=== PATIENT | female | born 1995 | race Caucasian/White ===

== ENCOUNTER 2017-09-30 06:25 | Emergency (ER) | payer OTHER ==
[2017-09-30] MEDS ORDERED: IBUPROFEN 800 MG TABLET PO ONE (07:15)
--- NOTE | 2017-09-30 07:15 | ER Document Report ---
HPI - HPI Patient complains to provider of: ankle injury Pain Level: 4 Context: Patient is a 21 year old female who presents to the ED complaining of left ankle injury. States she was walking in her yard in the dark, stepped in a small whole and rolled her ankle. She admits to pain on the anteriolateral aspect of her ankle without swelling and pain worse with movement and weight bearing. Denies taking any PO pain meds BIOMED TECH. Otherwise healthy. LMP sep 08 - CONSTITUTIONAL Constitutional: DENIES: Fever, Chills - EENT EENT: DENIES: Sore Throat, Ear Pain, Eye problems - NEURO Neurology: DENIES: Headache, Weakness, Vision blurred, Dizzinesss / Vertigo - CARDIOVASCULAR Cardiovascular: DENIES: Chest pain - RESPIRATORY Respiratory: DENIES: Trouble Breathing, Coughing - GASTROINTESTINAL Gastrointestinal: DENIES: Abdominal Pain, Black / Bloody Stools - URINARY Urinary: DENIES: Dysuria, Urgency, Frequency - REPRODUCTIVE LMP: 09-08-17 - MUSCULOSKELETAL Musculoskeletal: REPORTS: Extremity pain - left ankle d/t fall Past Medical History - Social History Smoking Status: Current Every Day Smoker Chew tobacco use (# tins/day): No Frequency of alcohol use: None Drug Abuse: None Family History: Reviewed & Not Pertinent Patient has suicidal ideation: No Patient has homicidal ideation: No Renal/ Medical History: Denies: Hx Peritoneal Dialysis Vertical Provider Document - CONSTITUTIONAL Agree With Documented VS: Yes Notes: PHYSICAL EXAM GENERAL: Alert, interacts well. HEAD: Normocephalic, atraumatic. EXTREMITIES: Moves all extremities spontaneously with guarding of the LLE 2/2 pain. No evidence of edema, ecchymosis, deformity. ROM intact, cap refill less than 2 seconds in LE digits. Toes nontender. Knee nontender full ROM. Dorsalis pedis pulses 2/4 bilaterally. No cyanosis. NEUROLOGICAL: Alert and oriented x4. Normal speech. PSYCH: Normal affect, normal mood. SKIN: Warm, dry, normal turgor. No rashes or lesions noted. - INFECTION CONTROL TRAVEL OUTSIDE OF THE [place] IN LAST 30 DAYS: No - RESPIRATORY O2 Sat by Pulse Oximetry: 100 Course - Re-evaluation Re-evalutation: 09/30/17 08:01 Patient is a 21-year-old female is hemodynamically stable, no acute distress and afebrile. No evidence of a septic joint, gout flare, dislocation, or fracture on exam and imaging. Vitals wnl. At this time, I do not see an indication for labs or further imaging. Will discharge with conservative measures, return precautions, and follow-up recommendations. - Vital Signs Vital signs: Temp Pulse Resp BP Pulse Ox 98.5 F 120 H 18 124/88 H 100 09/30/17 06:33 09/30/17 06:33 09/30/17 06:33 09/30/17 06:33 09/30/17 06:33 - Diagnostic Test Radiology reviewed: Image reviewed, Reports reviewed Procedures - Immobilization Left Ankle Pre-Proc Neuro Vasc Exam: Normal Immobilizer type: Mohsen wrap, Crutches Performed by: PCT Post-Proc Neuro Vasc Exam: Unchanged from pre-exam Discharge - Discharge Clinical Impression: Ankle pain Qualifiers: Chronicity: acute Laterality: left Qualified Code(s): M25.572 - Pain in left ankle and joints of left foot Condition: Good Disposition: HOME, SELF-CARE Additional Instructions: You do not have evidence of a fracture on today's xrays. Your pain is likely to do soft tissue swelling and inflammation. This can last up to 6 weeks before completely resolving. You should continue to apply ice to the area regularly, keep the affected area elevated, and take ibuprofen 600mg every 6 hours as needed for pain. Please return if you have worsening pain, weakness, numbness, notice increasing redness or swelling to the area, develop a fever, or have any other symptoms that are concerning to you. Referrals: RADHA SAHNI MD [ACTIVE STAFF] - Follow up as needed
--- NOTE | 2017-09-30 07:36 | RADIOLOGY REPORT (SQ) ---
EXAM DESCRIPTION: ANKLE LEFT COMPLETE CLINICAL HISTORY: fall, pain COMPARISON: None. FINDINGS: 3 views of the left ankle. No acute fracture or dislocation. Normal osseous mineralization. Tibial plafond and talar dome are in appropriate alignment. Base of the fifth metatarsal is intact. IMPRESSION: No acute fracture or dislocation.
[2017-09-30 10:00] VITALS: BP 120/71
== END 2017-09-30 08:55 | disposition home or self-care (01) ==
LOC: ER 06:25
DX: M25.572 Pain in left ankle and joints of left foot (principal); X50.1XXA Overexertion from prolonged static or awkward postures, initial encounter; F17.200 Nicotine dependence, unspecified, uncomplicated
CPT/HCPCS: 99283

== ENCOUNTER 2017-11-26 19:03 | Emergency (ER) | payer OTHER ==
--- NOTE | 2017-11-26 20:13 | ER Document Report ---
ED Medical Screen (RME) - General Chief Complaint: Suicidal Ideation Stated Complaint: SUICIDAL IDEATION Time Seen by Provider: 11/26/17 20:11 Mode of Arrival: Ambulatory Information source: Patient Notes: Patient presents complaining of suicidal ideation. Patient states she has been hospitalized for this issue in the past. Patient states she has had previous attempts by cutting herself and taking pills on 2 separate occasions. Patient is currently 12 weeks . Patient denies any significant medical history although when asked patient does acknowledge that she has been to therapy for what she suspects is depression. I have greeted and performed a rapid initial assessment of this patient. A comprehensive ED assessment and evaluation of the patient, analysis of test results and completion of the medical decision making process will be conducted by additional ED providers. TRAVEL OUTSIDE OF THE [place] IN LAST 30 DAYS: No - Related Data Allergies/Adverse Reactions: Penicillins Allergy (Verified 11/26/17 19:04) Past Medical History Renal/ Medical History: Denies: Hx Peritoneal Dialysis Physical Exam - Vital signs Vitals: Temp Pulse Resp BP Pulse Ox 99.1 F 126 H 16 133/80 H 99 11/26/17 19:07 11/26/17 19:07 11/26/17 19:07 11/26/17 19:07 11/26/17 19:07 - Cardiovascular Rhythm: Regular. No: Tachycardia Heart sounds: S1 appreciated, S2 appreciated - Psychological Associated symptoms: Normal affect, Normal mood. No: Uncooperative Course - Vital Signs Vital signs: Temp Pulse Resp BP Pulse Ox 99.1 F 126 H 16 133/80 H 99 11/26/17 19:07 11/26/17 19:07 11/26/17 19:07 11/26/17 19:07 11/26/17 19:07
[2017-11-26 21:03] LABS: ABSOLUTE EOSINOPHILS # (AUTO) 0.3 10^3/uL (0.0-0.6); ABSOLUTE MONOCYTES (AUTO) 0.6 10^3/uL (0.1-1.4); ABSOLUTE NEUT (AUTO) 7.9 10^3/uL (1.7-8.2); BASOPHILS % (AUTO) 0.4 % (0-2); HEMATOCRIT 38.5 % (36.0-47.0); HEMOGLOBIN 13.3 g/dL (12.0-15.5); LYMPHOCYTES % (AUTO) 18.7 % (13-45); MEAN CORPUSCULAR HEMOGLOBIN 29.3 pg (27.0-33.4); MEAN CORPUSCULAR HGB CONC 34.5 g/dL (32.0-36.0); MEAN CORPUSCULAR VOLUME 85 fl (80-97); MONOCYTES % (AUTO) 5.3 % (3-13); PLATELET COUNT 277 10^3/uL (150-450); RED BLOOD COUNT 4.54 10^6/uL (3.72-5.28); RED CELL DISTRIBUTION WIDTH 14.5 % (11.5-14.0); SEGMENTED NEUTROPHILS % (AUTO) 72.6 % (42-78); TOTAL CELLS COUNTED % (AUTO) 100 %; WHITE BLOOD COUNT 10.9 10^3/uL (4.0-10.5)
[2017-11-26 21:09] LABS: APPEARANCE,URINE SLIGHTLY-CLOUDY; BILIRUBIN,URINE NEGATIVE (NEGATIVE); COLOR,URINE YELLOW; GLUCOSE, URINE NEGATIVE (NEGATIVE); KETONES,URINE 20 mg/dL (NEGATIVE); LEUKOCYTE ESTERASE,URINE NEGATIVE (NEGATIVE); NITRITE,URINE NEGATIVE (NEGATIVE); PROTEIN,URINE NEGATIVE (NEGATIVE); URINE SPECIFIC GRAVITY 1.024
[2017-11-26 21:22] LABS: URINE AMPHETAMINES SCREEN NEGATIVE; URINE BARBITURATES SCREEN NEGATIVE; URINE BENZODIAZEPINES SCREEN NEGATIVE; URINE COCAINE SCREEN NEGATIVE; URINE MARIJUANA (THC) SCREEN NEGATIVE; URINE METHADONE SCREEN NEGATIVE; URINE PHENCYCLIDINE SCREEN NEGATIVE
[2017-11-26 21:25] LABS: ALANINE AMINOTRANSFERASE 30 U/L (9-52); ALBUMIN 4.3 g/dL (3.5-5.0); ALKALINE PHOSPHATASE 61 U/L (38-126); ANION GAP 11 (5-19); ASPARTATE AMINO TRANSFERASE 23 U/L (14-36); BILIRUBIN,DIRECT 0.4 mg/dL (0.0-0.4); BILIRUBIN,TOTAL 0.4 mg/dL (0.2-1.3); BLOOD UREA NITROGEN 7 mg/dL (7-20); CALCIUM 9.5 mg/dL (8.4-10.2); CARBON DIOXIDE 26 mmol/L (22-30); CHLORIDE 103 mmol/L (98-107); GLUCOSE 76 mg/dL (75-110); POTASSIUM 3.7 mmol/L (3.6-5.0); SODIUM 139.8 mmol/L (137-145)
[2017-11-26 21:27] LABS: ACETAMINOPHEN < 10 ug/mL (10-30); ALCOHOL < 10 mg/dL (NONE DETECTED); SALICYLATE < 1.0 mg/dL (2.0-20.0)
--- NOTE | 2017-11-26 22:33 | ER Document Report ---
ED General - General Chief Complaint: Suicidal Ideation Stated Complaint: SUICIDAL IDEATION Time Seen by Provider: 11/26/17 20:11 Mode of Arrival: Ambulatory Notes: Patient is a 22-year-old female without past medical history, no prior mental health diagnoses, who presents with passive suicidal ideation and depression. Patient states that the symptoms have been going on "my entire life" but that she was having increasing suicidal thoughts over the past several days which prompted her to come to the emergency department. She states that she had been googling ways to harm herself but did not making any attempts or plans towards harming herself. She has never been evaluated by a psychiatrist, no prior mental health hospitalizations, and has never been on any psychiatric medications. She denies any acute medical concerns. She is unable to identify anything that would have triggered or worsened her current depression or increase or suicidal thoughts. TRAVEL OUTSIDE OF THE [place] IN LAST 30 DAYS: No - Related Data Allergies/Adverse Reactions: Penicillins Allergy (Verified 11/26/17 19:04) Past Medical History - General Information source: Patient - Social History Smoking Status: Current Every Day Smoker Chew tobacco use (# tins/day): No Frequency of alcohol use: None Drug Abuse: None Lives with: Spouse/Significant other Family History: Reviewed & Not Pertinent Patient has suicidal ideation: Yes Patient has homicidal ideation: No Renal/ Medical History: Denies: Hx Peritoneal Dialysis Review of Systems - Review of Systems Notes: Constitutional: Negative for fever. HENT: Negative for sore throat. Eyes: Negative for visual changes. Cardiovascular: Negative for chest pain. Respiratory: Negative for shortness of breath. Gastrointestinal: Negative for abdominal pain, vomiting or diarrhea. Genitourinary: Negative for dysuria. Musculoskeletal: Negative for back pain. Skin: Negative for rash. Neurological: Negative for headaches, weakness or numbness. 10 point ROS negative except as marked above and in HPI. Physical Exam - Vital signs Vitals: Temp Pulse Resp BP Pulse Ox 99.1 F 126 H 16 133/80 H 99 11/26/17 19:07 11/26/17 19:07 11/26/17 19:07 11/26/17 19:07 11/26/17 19:07 Interpretation: Tachycardic Notes: PHYSICAL EXAMINATION: GENERAL: Well-appearing, well-nourished and in no acute distress. HEAD: Atraumatic, normocephalic. EYES: Pupils equal round and reactive to light, extraocular movements intact, sclera anicteric, conjunctiva are normal. ENT: nares patent, oropharynx clear without exudates. Moist mucous membranes. NECK: Normal range of motion, supple without lymphadenopathy LUNGS: Breath sounds clear to auscultation bilaterally and equal. No wheezes rales or rhonchi. HEART: Regular rate and rhythm without murmurs ABDOMEN: Soft, nontender, normoactive bowel sounds. No guarding, no rebound. No masses appreciated. EXTREMITIES: Normal range of motion, no pitting or edema. No cyanosis. NEUROLOGICAL: No focal neurological deficits. Moves all extremities spontaneously and on command. PSYCH: Moderately anxious, depressed affect and mood SKIN: Warm, Dry, normal turgor, no rashes or lesions noted. Course - Re-evaluation Re-evalutation: 11/26/17 22:32 Patient presents with chronic passive suicidal ideation and depression that she reports has been present "all of my life". She denies any specific plans, means or intention to complete suicide this evening. Nothing is new or different today that prompted a visit to the emergency department other than patient decided that she would "like to be better and live a normal life". She is scheduled to have an outpatient follow-up appointment tomorrow with a family counseling service but would also like to remain in the emergency department to do speak to her psychiatry services in the morning. She will remain on a voluntary basis that she does not meet involuntary commitment criteria. Patient is 12 weeks and is already aware of this diagnosis. The remainder of her medical screening exam and laboratories are otherwise unremarkable. She is cleared for psychiatric evaluation and disposition - Vital Signs Vital signs: Temp Pulse Resp BP Pulse Ox 99.1 F 100 16 133/80 H 99 11/26/17 19:07 11/26/17 20:12 11/26/17 19:07 11/26/17 19:07 11/26/17 19:07 - Laboratory Result Diagrams: 11/26/17 20:45 11/26/17 20:45 Laboratory results interpreted by me: 11/26/17 11/26/17 11/26/17 20:45 20:45 20:45 WBC 10.9 H RDW 14.5 H Creatinine 0.48 L Serum HCG, Qual POSITIVE H Urine Ketones Urine Urobilinogen Salicylates < 1.0 L Acetaminophen < 10 L 11/26/17 20:45 WBC RDW Creatinine Serum HCG, Qual Urine Ketones 20 H Urine Urobilinogen 2.0 H Salicylates Acetaminophen - EKG Interpretation by Me Additional EKG results interpreted by me: 11/27/17 02:33 Normal sinus rhythm. Rate 87. No ST elevations or depressions. QTC is 429. Discharge - Discharge Clinical Impression: Passive suicidal ideations Depression Qualifiers: Depression Type: unspecified Qualified Code(s): F32.9 - Major depressive disorder, single episode, unspecified Condition: Good Disposition: PSYCH HOSP/UNIT
--- NOTE | 2017-11-27 08:02 | EKG REPORT ---
SEVERITY:- NORMAL ECG - SINUS RHYTHM : Confirmed by: Manohar Caal MD 27-Nov-2017 08:01:45
[2017-11-27 08:27] VITALS: BP 110/50
--- NOTE | 2017-11-27 10:01 | ER Document Report ---
Doctor's Note Notes: 11/27/17 10:00 Rounds: Chart reviewed and patient sleeping and I did not awaken her. Patient is . Has depression and suicidal ideation. Vital signs are all essentially normal. Lab studies were also essentially normal. Patient appears to be medically stable for transfer or discharge. Lizy Houser MD
--- NOTE | 2017-11-27 19:17 | PSYCHOLOGICAL NOTE ---
Psych Note - Psych Note Psych Note: Met with Patient who advised she has 4 children (7,2,2,1) and is currently 12 weeks . She stated she feels very depressed, has difficulty getting out of bed, and caring for her children. She reports she sometimes feels as though she wants to throw her children across the room, though this is frustration with the depression. She reported she cries all the time, is upset, and wants to have no responsibility in life. She denied any physical altercation between she and her children or . Patient reported a lengthy of history of depression since her teenage years. She reported an inpatient psychiatric stay at age 15 for cutting behaviors in [place], [place] for 3-4 days, and reported the cutting behaviors ceased. She denied previous suicide attempts until approximately 5 months ago when she reportedly took a bottle of antibiotics with intent to overdose, but her made her go to the bathroom and vomit, and did not have her seek medical attention. Patient reported she became at age 14 with her oldest child and the father of that child is reportedly now secondary to a car crash. The father of her twins reportedly by suicide in the driveway of their home and she was the one who found him, per her report. She described the moment of finding him as sad and scary, but also as exciting at the thought of and dying. Patient continued to ask if she was " bipolar" and if she could be provided information on bipolar disorder. Patient reported a family history of depression, bipolar, schizophrenia, alcoholism, drug abuse, etc. She indicated she has been on her own since age 14 and denied any sexual trauma. She reported she has been for 2 years to her Kyle who is an Pharmaceutical Operator in the [employer]. She stated she has an 11th grade education and does not work. She reported she generally stays home all day with the children which is challenging. Patient was alert and oriented to person, place, time, and circumstance. Mood was euthymic and affect was mood congruent, though it should be noted patient often laughed at inappropriate times such as discussing her ex's suicide, getting at age 14, her mother abandoning her, etc. She denied suicidal / homicidal ideation, intent or plan. She denied auditory/visual hallucination and no delusions were noted. Thought processes were linear, rational, and organized. Conversational speech was within normal limits for rate, tone, and prosody.Intellectual abilities were estimated within average range. Attention and concentration were within normal limits. Insight, judgment, and impulse control were considered fair. No Medication recommendations secondary to . Diagnoses: 1. 296.89 (F31.81) Bipolar II Disorder Impression / Plan: Patient is psychiatrically clear for discharge. She denied suicidal / homicidal ideation, intent or plan. She was provided resources for [facility], [facility], and [facility] for follow up outpatient. She was also referred to SUPER[employer]OR TRA[employer] TRA[employer] to coordinate her care when she schedules with a psychiatrist given she is 12 weeks . Patient demonstrated inappropriate affect by laughing at tragic situations. Patient reported her is her only source of support. She reported she has an appointment with a family counselor at noon and is wanting to attend. ED Physician in agreement with recommendation and disposition.
== END 2017-11-27 11:11 | disposition home or self-care (01) ==
LOC: ER 19:03
DX: O99.341 Other mental disorders complicating pregnancy, first trimester (principal); R45.851 Suicidal ideations; F31.81 Bipolar II disorder; Z88.0 Allergy status to penicillin; Z3A.12 12 weeks gestation of pregnancy
CPT/HCPCS: 36415; 80053; 80307; 81001; 84703; 85025; 93005; 93010; 99285

== ENCOUNTER 2018-04-04 23:21 | Inpatient (IN) | payer OTHER ==
[2018-04-05 00:05] LABS: AMORPHOUS SEDIMENT,URINE TRACE /HPF; APPEARANCE,URINE CLEAR; BILIRUBIN,URINE NEGATIVE (NEGATIVE); COLOR,URINE AMBER; GLUCOSE, URINE NEGATIVE (NEGATIVE); KETONES,URINE NEGATIVE (NEGATIVE); LEUKOCYTE ESTERASE,URINE NEGATIVE (NEGATIVE); NITRITE,URINE NEGATIVE (NEGATIVE); PROTEIN,URINE NEGATIVE (NEGATIVE); URINE SPECIFIC GRAVITY 1.009; UROBILINOGEN,URINE NEGATIVE mg/dL (<2.0)
[2018-04-05 00:21] LABS: URINE AMPHETAMINES SCREEN NEGATIVE; URINE BARBITURATES SCREEN NEGATIVE; URINE BENZODIAZEPINES SCREEN NEGATIVE; URINE COCAINE SCREEN NEGATIVE; URINE MARIJUANA (THC) SCREEN NEGATIVE; URINE METHADONE SCREEN NEGATIVE; URINE PHENCYCLIDINE SCREEN NEGATIVE
[2018-04-05] MEDS ORDERED: TERBUTALINE SULFATE INJ/PF 1 MG/1 ML SDV SUBCUT ONE (00:51)
[2018-04-05] MEDS ORDERED: TERBUTALINE SULFATE INJ/PF 1 MG/1 ML SDV ONE ×2 (00:54→02:39)
[2018-04-05] MEDS: RINGERS SOLUTION,LACTATED 1,000 ML IV PRN ×3 (01:23→11:26)
--- NOTE | 2018-04-05 02:19 | RADIOLOGY REPORT (SQ) ---
EXAM DESCRIPTION: US LIMITED COMPLETED DATE/TME: 04/05/2018 00:27 CLINICAL HISTORY: 22 years Female, cervical length, uterine scar status, placenta sta Comparison: None. TECHNIQUE/LIMITATION: Targeted OB sonogram for requested parameters only. FINDINGS: Cardiac activity: 135-bpm. Uterine incisional scar: No evidence of complication. Placenta: Anterior. No evidence of abruption. No placenta previa. Presentation: Vertex Cervical length: 2.8-cm. Closed appearance with minimal fluid within the cervical canal. IMPRESSION: Targeted OB sonogram for requested parameters
[2018-04-05] MEDS ORDERED: MAGNESIUM SULFATE 4 GM/100 ML RTUPB IV ONE ×2 (02:26→02:30)
[2018-04-05] MEDS ORDERED: BETAMET ACET/BETAMET NA INJ 6 MG/1 ML IM ONE (02:26)
[2018-04-05] MEDS ORDERED: MAGNESIUM SULFATE 20 GM/500 ML RTUINJ IV PRN ×2 (02:26→08:32)
[2018-04-05] MEDS ORDERED: BETAMET ACET/BETAMET NA INJ 6 MG/1 ML ONE ×2 (02:29→07:25)
[2018-04-05] MEDS ORDERED: MAGNESIUM SULFATE 20 GM/500 ML RTUINJ IV ONE ×2 (02:30→18:11)
[2018-04-05] MEDS ORDERED: CLINDAMYCIN 900 MG/D5W RTU 900 MG/50 ML RTUPB IV ONE ×3 (02:30→19:21)
--- NOTE | 2018-04-05 03:53 | Admission Physical ---
Datetime Report Generated by CPN: 04/05/2018 03:53 CURRENT ADMISSION Chief Complaint: Uterine Contractions Indication for Induction: Not Applicable Admit Impression : , Intrauterine Admit Plan: Admit to Unit ALLERGIES Medication Allergies: Yes Medication Allergies: Penicillins (04/05/2018) Latex: No Latex Allergies Food Allergies: denies Environmental Allergies: denies OBSTETRICAL HISTORY EDC: 06/12/2018 00:00 : 4 Para: 3 Term: 2 : 2 SAB: 0 IAB: 0 Livin Cesareans: 3 Multiple Births: 1 Gestational Diabetes: No Rh Sensitization: No Incompetent Cervix: No DANAE: No Infertility: No ART Treatment: No Uterine Anomaly: No IUGR: No Hx Previous C/S: Yes Macrosomia: No Hx Loss/Stillborn: No PIH: No Hx : No Placenta Previa/Abruption: No Depression/PP Depression: No PTL/PROM: Yes Post Hemorrhage: No Current Procedures: Ultrasound; NST Obstetrical History Comments: g1-2009, male, c/s, 8lb g2-2015, twins, male/male, c/s, both 5lbs @ 34 weeks g3-2016, female, c/s, 6lbs @ 35 weeks g4-current , brief gap in care, not taking prometrium as prescribed SEE RECORDS Alcohol: No Marijuana : No Cocaine: No Other Illicit Drugs: No Cigarettes: Current Everyday Smoker. 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 Heart Disease: No Hosp/Surgery: Yes Autoimmune Disorder: No Anesthetic Complications: No Kidney Disease: No Abnormal Pap Smear: No Neuro/Epilepsy: No Psychiatric Disorders: No Other Medical Diseases: No Hepatitis/Liver Disease: No Significant Family History: No Varicosities/Phlebitis: No Trauma/Violence : No Thyroid Dysfunction: No Medical History Comments: childbirth x 3 (c/s x 3), gallbladder removal, appendectomy, smoker, HSV INFECTIOUS HISTORY Gonorrhea: No Genital Herpes: Yes Chlamydia: No Tuberculosis: No Syphilis: No Hepatitis: No HIV/AIDS Exposure: No Rash or Viral Illness: No HPV: No PHYSICAL EXAM General: Normal HEENT: Normal Neurologic: Normal Thyroid: Normal Heart: Normal Lungs: Normal Breast: Deferred Back: Normal Abdomen: Normal Genitourinary Exam: Normal Extremities: Normal DTRs: Normal Pelvic Type: Adequate FETUS A EGA: 30.2 Monitoring: External US Decelerations: None Admit Comment: history of pre term labor, admitted for pre-term labor PLANS FOR LABOR AND DELIVERY Labor and Delivery: None Pain Management: Spinal Feeding Preference: Both Benefit of Breast Feed Discussed: Yes Circumcision: Yes INFORMED CONSENT Signature: with User ID: [email or web address]
[2018-04-05] MEDS: CLINDAMYCIN 900 MG/D5W RTU 900 MG/50 ML RTUPB IV SCH ×2 (06:35→19:24)
[2018-04-05 07:07] LABS: HEMATOCRIT 28.3 % (36.0-47.0); HEMOGLOBIN 9.8 g/dL (12.0-15.5); MEAN CORPUSCULAR HEMOGLOBIN 30.2 pg (27.0-33.4); MEAN CORPUSCULAR HGB CONC 34.6 g/dL (32.0-36.0); MEAN CORPUSCULAR VOLUME 87 fl (80-97); PLATELET COUNT 200 10^3/uL (150-450); RED BLOOD COUNT 3.24 10^6/uL (3.72-5.28); RED CELL DISTRIBUTION WIDTH 13.3 % (11.5-14.0); WHITE BLOOD COUNT 14.4 10^3/uL (4.0-10.5)
[2018-04-05 07:46] LABS: ABSOLUTE LYMPHOCYTES# (MANUAL) 0.3 10^3/uL (0.5-4.7); ABSOLUTE MONOCYTES # (MANUAL) 0.4 10^3/uL (0.1-1.4); ABSOLUTE NEUTROPHILS# (MANUAL) 13.7 10^3/uL (1.7-8.2); BAND NEUTROPHILS % (MANUAL) 1 % (3-5); BASOPHILS % (MANUAL) 0 % (0-2); EOSINOPHILS % (MANUAL) 0 % (0-6); LYMPHOCYTES % (MANUAL) 2 % (13-45); METAMYELOCYTES % (MANUAL) 2 % (0); MONOCYTES % (MANUAL) 3 % (3-13); SEGMENTED NEUTROPHILS % (MAN) 92 % (42-78); TOTAL CELLS COUNTED 100
[2018-04-05 07:47] LABS: PLATELET COMMENT ADEQUATE; RBC MORPHOLOGY COMMENT NORMO-CYTIC/CHROMIC; TOXIC GRANULATION 1+
--- NOTE | 2018-04-06 00:05 | L&D Progress Notes ---
PROGRESS NOTES Datetime Report Generated by CPN: 04/06/2018 00:05 PROGRESS NOTE Impression: Labor Impression: Labor Plan: Continue Present Management Plan: Continue Present Management Informed Consent Obtained: Risks, Benefits and Alternatives Discussed Informed Consent Obtained: Risks, Benefits and Alternatives Discussed Comment: Pt here for monitoring and Mag sulfate with BMZ and clinda due to significant ctx and presentation to L_D for ctx. HSV - needs suppression. pt reports that he was painting the twins room and then had intercourse and her checked her cvx. Pt was having significant ctx upon presentation but since placement on mag uterine activity has quieted. Will continue to monitor. BMX at 0200 and then off mag if doing well at 0330 or 0400 and will eval to see if ctx return off mag at that time. Pt o/w doing well. H/o c/s x 3. h/o twins. Non compliant with large gaps in care. Comment: Pt here for monitoring and mag sulfate due FETUS A Monitoring: External US Monitoring: External US Decelerations: None FHR Category: Category I SIGNATURE SIGNATURE: ,[id number] SIGNATURE: ,[id number] Signature: with User ID: [email or web address]
[2018-04-06] MEDS ORDERED: BETAMET ACET/BETAMET NA INJ 6 MG/1 ML IM SCH (00:15)
[2018-04-06] MEDS: RINGERS SOLUTION,LACTATED 1,000 ML IV PRN (01:11)
[2018-04-06] MEDS ORDERED: BETAMET ACET/BETAMET NA INJ 6 MG/1 ML IM ONE (02:26)
[2018-04-06] MEDS ORDERED: CLINDAMYCIN 900 MG/D5W RTU 900 MG/50 ML RTUPB IV ONE (02:46)
[2018-04-06] MEDS ORDERED: BETAMET ACET/BETAMET NA INJ 6 MG/1 ML ONE (02:46)
[2018-04-06] MEDS: CLINDAMYCIN 900 MG/D5W RTU 900 MG/50 ML RTUPB IV SCH (02:52)
--- NOTE | 2018-04-06 06:56 | L&D Progress Notes ---
PROGRESS NOTES Datetime Report Generated by CPN: 04/06/2018 06:55 PROGRESS NOTE Impression: Labor Plan: Continue Present Management Informed Consent Obtained: Risks, Benefits and Alternatives Discussed Comment: CAT I FHR tracing this am. Magnesium sulfate discontinued at 0400. Clindamycin stopped. BMZ second dose was given at approx 0250. Pt is doing well. SHe is going to get up and ambulate and if remains stable and without contractions then she will likely be able to go home. FETUS C SIGNATURE: [id number] Signature: with User ID: [email or web address]
[2018-04-06 09:04] VITALS: BP 87/50
--- NOTE | 2018-04-06 10:35 | DISCHARGE SUMMARY E ---
Discharge Summary NAME: MIRZA ALEJANDRO : 1995 AGE: 22Y ADMITTED: 04/05/2018 DISCHARGED: 04/06/2018 ADMISSION DIAGNOSIS: Pre-term labor. DISCHARGE DIAGNOSIS: Arrest of pre-term labor. HOSPITAL COURSE: The patient is a 22-year-old G5, P2-1-0-3 at 30 weeks and 2 days, admitted for pre-term contractions with a diagnosis of pre-term labor based on the admitting physician, due to onset of contractions every 1-2 minutes and a cervical length was 2.8 cm. The patient did have intercourse and did have strenuous activity prior to her admission of painting her future baby's room and also had her digitally check her cervix per the report I received from Dr. Maynard. All of these factors, probably were the reason for her onset of pre-term contracts. The patient has a history of previous C section x3 as well and that was another reason for her to be admitted and observed. The patient did receive active admission. She did receive magnesium sulfate for neuro protection and received betamethasone for lung maturity and was instituted on clindamycin antibiotics because of her penicillin allergies for GBS unknown status. The patient did receive 2 doses of betamethasone and received 48-72 hours of magnesium sulfate. The patient tolerated the medications well. Her contractions have subsided. Her tocometer shows mild irritability with occasional contractions throughout her last night of admission. The patient feels well and desires to go home. The patient was given strict precautions of when to re-present including decreased movement, leakage of fluid, vaginal bleeding, or reoccurrence of contractions again. The patient denies any current abdominal pain, suprapubic pain, or right upper quadrant pain. The patient desires to ultimately go home with appropriate followup with her private RADIO INTERFERENCE EXPERT in the next few days. DISPOSITION: Discharge home with appropriate followup. DICTATING PHYSICIAN: Tiffany Hanson MD [id number] PHY#: [id number] ID: [id number] JOB#: [id number] ACCT: [id number] cc:Michael DELEON >
== END 2018-04-06 09:39 | disposition home or self-care (01) | DRG 778 ==
LOC: LC 23:21 → LR 04-05 02:27
PROVIDERS: ADMIT Obstetrics & Gynecology Gynecology; ATTEND Obstetrics & Gynecology Gynecology
DX: O60.03 Preterm labor without delivery, third trimester (principal); O34.211 Maternal care for low transverse scar from previous cesarean delivery; O99.333 Smoking (tobacco) complicating pregnancy, third trimester; F17.210 Nicotine dependence, cigarettes, uncomplicated; N85.8 Other specified noninflammatory disorders of uterus; Z3A.30 30 weeks gestation of pregnancy
CPT/HCPCS: 36415; 76815; 80307; 81001; 85025; 86592; 86850; 86900; 86901; J0702; J3105; J3475

== ENCOUNTER 2018-04-10 22:16 | Outpatient (CLI) | payer OTHER ==
[2018-04-10 23:00] LABS: APPEARANCE,URINE CLOUDY; BILIRUBIN,URINE NEGATIVE (NEGATIVE); COLOR,URINE YELLOW; GLUCOSE, URINE NEGATIVE (NEGATIVE); KETONES,URINE NEGATIVE (NEGATIVE); LEUKOCYTE ESTERASE,URINE NEGATIVE (NEGATIVE); NITRITE,URINE NEGATIVE (NEGATIVE); PROTEIN,URINE 30 mg/dL (NEGATIVE); URINE SPECIFIC GRAVITY 1.013; UROBILINOGEN,URINE NEGATIVE mg/dL (<2.0)
[2018-04-10 23:12] LABS: URINE AMPHETAMINES SCREEN NEGATIVE; URINE BARBITURATES SCREEN NEGATIVE; URINE BENZODIAZEPINES SCREEN NEGATIVE; URINE COCAINE SCREEN NEGATIVE; URINE MARIJUANA (THC) SCREEN NEGATIVE; URINE METHADONE SCREEN NEGATIVE; URINE PHENCYCLIDINE SCREEN NEGATIVE
--- NOTE | 2018-04-10 23:54 | RADIOLOGY REPORT (SQ) ---
EXAM DESCRIPTION: US LIMITED COMPLETED DATE/TME: 04/10/2018 00:00 CLINICAL HISTORY: 22 years, Female, cervical length for contractions. LMP 09/05/2017 COMPARISON: 04/05/2018 TECHNIQUE: OB sonogram for requested parameters. FINDINGS: Cervical length: 3.3 cm. Mild funneling at the internal cervical os. Small amount of fluid in the cervical canal. position: Vertex Placenta: Anterior. No evidence of previa. heart rate: 158 beats for minute. IMPRESSION: 1. Single live intrauterine with heart rate of 158 bpm. 2. Cervical length of 3.3 cm with mild funneling. Minimal fluid within the cervical canal. 2011 [employer]- All Rights Reserved
[2018-04-11 00:18] LABS: AMNISURE (ROM) NEGATIVE (NEGATIVE)
[2018-04-11] MEDS ORDERED: HYDROXYZINE PAMOATE 50 MG CAPSULE ONE (01:12)
[2018-04-11] MEDS ORDERED: ACETAMINOPHEN 325 MG TABLET ONE (01:12)
== END 2018-04-11 01:25 | disposition home or self-care (01) ==
LOC: LC 22:16
PROVIDERS: ATTEND Obstetrics & Gynecology
PROC: 4A1HXCZ Monitoring of Products of Conception, Cardiac Rate, External Approach (ICD-10-PCS; principal; 2018-04-10)
DX: O47.03 False labor before 37 completed weeks of gestation, third trimester (principal); Z3A.30 30 weeks gestation of pregnancy
CPT/HCPCS: 76815; 80307; 81001; 84112

== ENCOUNTER 2018-05-19 18:57 | Outpatient (CLI) | payer OTHER ==
[2018-05-19 20:07] LABS: APPEARANCE,URINE SLIGHTLY-CLOUDY; BILIRUBIN,URINE NEGATIVE (NEGATIVE); GLUCOSE, URINE NEGATIVE (NEGATIVE); KETONES,URINE TRACE mg/dL (NEGATIVE); LEUKOCYTE ESTERASE,URINE NEGATIVE (NEGATIVE); NITRITE,URINE NEGATIVE (NEGATIVE); PROTEIN,URINE 30 mg/dL (NEGATIVE); URINE SPECIFIC GRAVITY 1.024
[2018-05-19 20:12] LABS: COLOR,URINE DARK YELLOW
[2018-05-19 20:25] LABS: URINE AMPHETAMINES SCREEN NEGATIVE; URINE BARBITURATES SCREEN NEGATIVE; URINE BENZODIAZEPINES SCREEN NEGATIVE; URINE COCAINE SCREEN NEGATIVE; URINE MARIJUANA (THC) SCREEN NEGATIVE; URINE METHADONE SCREEN NEGATIVE; URINE PHENCYCLIDINE SCREEN NEGATIVE
[2018-05-19] MEDS ORDERED: HYDROXYZINE PAMOATE 50 MG CAPSULE ONE (20:31)
[2018-05-19] MEDS ORDERED: RINGERS SOLUTION,LACTATED 1,000 ML IV ONE (20:45)
[2018-05-19] MEDS ORDERED: HYDROXYZINE PAMOATE 50 MG CAPSULE PO ONE (20:45)
[2018-05-19] MEDS ORDERED: PROMETHAZINE HCL INJ 25 MG/1 ML VIAL ONE ×2 (22:01→22:02)
[2018-05-19] MEDS ORDERED: NALBUPHINE HCL INJ 10 MG/1 ML AMPULE ONE (22:02)
== END 2018-05-19 23:50 | disposition home or self-care (01) ==
LOC: LC 18:57
PROVIDERS: ATTEND Obstetrics & Gynecology
PROC: 4A1HXCZ Monitoring of Products of Conception, Cardiac Rate, External Approach (ICD-10-PCS; principal; 2018-05-19)
DX: O60.03 Preterm labor without delivery, third trimester (principal); Z3A.36 36 weeks gestation of pregnancy
CPT/HCPCS: 81005; 80307; 59025; J2300; J2550

== ENCOUNTER 2018-06-05 05:07 | Inpatient (IN) | payer OTHER ==
[2018-06-05] MEDS ORDERED: AZITHROMYCIN INJ 500 MG VIAL IV ONE (05:40)
[2018-06-05 06:07] LABS: APPEARANCE,URINE CLOUDY; BILIRUBIN,URINE NEGATIVE (NEGATIVE); COLOR,URINE YELLOW; GLUCOSE, URINE NEGATIVE (NEGATIVE); KETONES,URINE NEGATIVE (NEGATIVE); LEUKOCYTE ESTERASE,URINE NEGATIVE (NEGATIVE); NITRITE,URINE NEGATIVE (NEGATIVE); PROTEIN,URINE NEGATIVE (NEGATIVE); URINE SPECIFIC GRAVITY 1.013; UROBILINOGEN,URINE NEGATIVE mg/dL (<2.0)
[2018-06-05] MEDS ORDERED: RINGERS SOLUTION,LACTATED 1,000 ML IV PRN (06:07)
[2018-06-05] MEDS ORDERED: AZITHROMYCIN 500 MG in DEXTROSE 5%-WATER 250 ML IV PRN (06:08)
[2018-06-05] MEDS ORDERED: RINGERS SOLUTION,LACTATED 1,000 ML IV ONE (06:15)
[2018-06-05] MEDS ORDERED: OXYTOCIN/NORMAL SALINE 20 UNIT/1,000 ML RTUINJ INJ PRN (06:25)
[2018-06-05 06:29] LABS: URINE AMPHETAMINES SCREEN NEGATIVE; URINE BARBITURATES SCREEN NEGATIVE; URINE BENZODIAZEPINES SCREEN NEGATIVE; URINE COCAINE SCREEN NEGATIVE; URINE MARIJUANA (THC) SCREEN NEGATIVE; URINE METHADONE SCREEN NEGATIVE; URINE PHENCYCLIDINE SCREEN NEGATIVE
[2018-06-05] MEDS ORDERED: DIPH/PERTUSS(ACELL)/TETANUS VAC/PF 0.5 ML SYR (>=10YO) IM PRN ×2 (06:30→09:09)
[2018-06-05] MEDS ORDERED: RINGERS SOLUTION,LACTATED 1,000 ML IV SCH (06:30)
[2018-06-05] MEDS ORDERED: OXYCODONE-ACETAMINOPHEN 5-325 MG TABLET PO PRN ×3 (06:30→09:09)
[2018-06-05] MEDS ORDERED: SIMETHICONE 80 MG TAB.CHEW PO PRN ×2 (06:30→09:09)
[2018-06-05] MEDS ORDERED: MEASLES,MUMPS&RUBELLA VACC/PF 0.5 ML VIAL SUBCUT PRN ×2 (06:30→09:09)
[2018-06-05] MEDS ORDERED: PROMETHAZINE HCL INJ 25 MG/1 ML VIAL IM PRN (06:30)
[2018-06-05] MEDS ORDERED: ACETAMINOPHEN 325 MG TABLET PO PRN ×2 (06:30→09:09)
[2018-06-05] MEDS ORDERED: BUPIVACAINE HCL/DEX-WATER/PF 15 MG/2 ML AMPULE ONE (07:36)
[2018-06-05] MEDS ORDERED: MIDAZOLAM 2 MG/2 ML INJ ONE ×2 (07:37)
[2018-06-05] MEDS ORDERED: OXYTOCIN 10 UNIT/ML VIAL ONE (07:37)
[2018-06-05] MEDS ORDERED: FENTANYL CITRATE INJ/PF 100 MCG/2 ML AMPUL ONE (07:37)
[2018-06-05] MEDS ORDERED: ONDANSETRON HCL INJ/PF 4 MG/2 ML SDV ONE (07:37)
[2018-06-05] MEDS ORDERED: EPHEDRINE SULFATE INJ 50 MG/1 ML AMPULE ONE (07:37)
[2018-06-05 07:38] LABS: ABSOLUTE BASOPHILS # (AUTO) 0.1 10^3/uL (0.0-0.2); ABSOLUTE EOSINOPHILS # (AUTO) 0.3 10^3/uL (0.0-0.6); ABSOLUTE LYMPHOCYTES (AUTO) 2.3 10^3/uL (0.5-4.7); ABSOLUTE MONOCYTES (AUTO) 0.8 10^3/uL (0.1-1.4); ABSOLUTE NEUT (AUTO) 9.2 10^3/uL (1.7-8.2); BASOPHILS % (AUTO) 0.6 % (0-2); EOSINOPHILS % (AUTO) 2.2 % (0-6); HEMATOCRIT 31.6 % (36.0-47.0); HEMOGLOBIN 10.6 g/dL (12.0-15.5); LYMPHOCYTES % (AUTO) 18.3 % (13-45); MEAN CORPUSCULAR HEMOGLOBIN 28.5 pg (27.0-33.4); MEAN CORPUSCULAR HGB CONC 33.7 g/dL (32.0-36.0); MEAN CORPUSCULAR VOLUME 85 fl (80-97); MONOCYTES % (AUTO) 6.6 % (3-13); PLATELET COUNT 218 10^3/uL (150-450); RED BLOOD COUNT 3.72 10^6/uL (3.72-5.28); RED CELL DISTRIBUTION WIDTH 13.5 % (11.5-14.0); SEGMENTED NEUTROPHILS % (AUTO) 72.3 % (42-78); TOTAL CELLS COUNTED % (AUTO) 100 %; WHITE BLOOD COUNT 12.7 10^3/uL (4.0-10.5)
[2018-06-05] MEDS ORDERED: FENTANYL CITRATE INJ/PF 100 MCG/2 ML AMPUL IV PRN ×3 (08:26)
[2018-06-05] MEDS ORDERED: DIPHENHYDRAMINE HCL 50 MG/ML VIAL IV PRN (08:26)
[2018-06-05] MEDS ORDERED: ONDANSETRON HCL INJ/PF 4 MG/2 ML SDV IV PRN (08:26)
[2018-06-05] MEDS ORDERED: MEPERIDINE HCL/PF INJ 25 MG/1 ML DISP.SYRIN IV PRN (08:26)
[2018-06-05] MEDS ORDERED: ACETAMINOPHEN 1,000 MG/100 ML RTUPB IV PRN (09:09)
[2018-06-05] MEDS ORDERED: OXYTOCIN/NORMAL SALINE 20 UNIT/1,000 ML RTUINJ IV PRN (09:09)
[2018-06-05] MEDS ORDERED: PROMETHAZINE HCL INJ 25 MG/1 ML VIAL IV PRN (09:09)
--- NOTE | 2018-06-05 09:14 | PDOC DELIVERY SUMMARY ---
Delivery Summary - Maternal Hx : IV Hx # Term Pregnancies: 4 Hx # Pregnancies: 3 DEWEY: 06/12/18 Gestational Age: 39 Ruptured Membranes: AROM Time of Rupture: 08:18 Fluids: Clear - Delivery Presentation: Vertex Heart Rate Monitoring: Done Pre-Operatively Support Person Present: Yes Location: OR : Scheduled, Repeat Placenta: Within Normal Limits Delivery of Placenta Date: 06/05/18 Delivery of Placenta Time: 08:20 - Medications Type of Anesthesia:: Spinal - Infant Assess and Care Baby 1 Male Delivery of Infant Date: 06/05/18 Delivery of Time: 08:19 at 1 minute: 8 at 5 minutes: 9 Preprinted Number On Band: [id number] Infant Skin to Skin: Yes Skin to Skin (Mins): 2 To Nursery At: 08:28 Mode of Transport: Bassinet Delivery Weight: 3,080 Infant Delivery Length: 20.5 in - Delivery Personnel Cook Dessert: WAYNE KITCHEN Nursehéctor RN: MARLON HARMON MD: NENA RODRIGUEZ
--- NOTE | 2018-06-05 09:30 | Operative Report ---
Operative Report DATE OF SURGERY: 06/05/18 PREOPERATIVE DIAGNOSIS: 1. Uterine at 39-0/7 weeks. 2. Previous section 3. 3. Desires permanent sterilization. 4. Rh+ POSTOPERATIVE DIAGNOSIS: Same OPERATION: 1. Repeat section. 2. Tubal ligation with Filshie clips SURGEON: NENA SHEPARD 1ST TANK CHARGER: BARBARA BUCK ANESTHESIA: Spinal TISSUE REMOVED OR ALTERED: Placenta COMPLICATIONS: None ESTIMATED BLOOD LOSS: 900 ml PROCEDURE: The patient was brought to the operating room where spinal anesthesia was administered without difficulty. A Mccann catheter was then placed in the patient's bladder. The patient was then prepared and draped in sterile fashion with a leftward tilt. Next, a Pfannenstiel skin incision was made with the scalpel using her previous incision as a guide. The fascia was incised in the midline and extended with the Bovie. The fascia was dissected off of the rectus muscles. The inferior portion of the incision was then dissected a muscles also. The muscles were then in the midline. It was noted that her right her peritoneum was adhesed to her rectus muscle. The uterus was exposed. The the muscles and peritoneum were then used. The bladder blade was then placed and the bladder flap was created. Bladder blade was then reinserted and the lower uterine segment was incised with scalpel. The amniotic sac was noted which was entered with a hemostat. Clear fluid was noted. The uterine incision was then extended with the bandage scissors, as well as digitally. The 's head was delivered, atraumatically, as well as the rest of the body. There was nuchal cord 2. The nose and mouth were then suctioned with the bulb suction and passed off to the awaiting dowel inspector. The uterus was then exteriorized and cleared of any clots and debris. The uterine incision was then closed with 0 Vicryl in a running, locked fashion. Second layer using 0 chromic was used to imbricate the incision for excellent hemostasis. A gzzkgo-vv-pzvrt was placed on the right aspect of the uterine incision secondary to some bleeding. Hemostasis was noted. Attention was then turned to the sterilization. The left tube was identified by Dr. Buck who then placed a Filshie clip. Hemostasis was noted. This seems done on the right side and hemostasis was also noted. Next, the abdomen was copiously irrigated with warm normal saline. The uterus was then returned back to the abdomen. There was some bleeding noted on the right aspect of the incision, which was resolved with a ivdoal-yx-vqnnv. The peritoneum was then closed in a running fashion with 2-0 Vicryl. The fascia was then closed with 0 Vicryl in a running fashion. The skin was closed in a subcuticular fashion with 4-0 Monocryl. The patient tolerated the procedures well. Sponge, lap, instrument and needle counts were correct 2. The patient was given azithromycin 500 mg prior to the start of the procedure. Patient was taken to recovery room in stable condition.
[2018-06-05] MEDS ORDERED: KETOROLAC TROMETHAMINE INJ/PF 30 MG/1 ML SDV ONE (09:43)
[2018-06-05] MEDS ORDERED: ACETAMINOPHEN 1,000 MG/100 ML RTUPB IV ONE (09:43)
[2018-06-05] MEDS ORDERED: OXYTOCIN/NORMAL SALINE 20 UNIT/1,000 ML RTUINJ ONE (09:44)
[2018-06-05] MEDS ORDERED: DOCUSATE SODIUM 100 MG CAPSULE PO SCH (10:00)
[2018-06-05] MEDS ORDERED: PRENATAL VITAMIN W DHA CAPSULE PO SCH (10:00)
[2018-06-05] MEDS ORDERED: HYDROMORPHONE HCL INJ/PF 2 MG/ML AMPULE ONE (10:28)
[2018-06-05] MEDS: HYDROMORPHONE HCL INJ/PF 2 MG/ML AMPULE IV PRN ×3 (10:29→18:58)
[2018-06-05] MEDS: PRENATAL VITAMIN W DHA CAPSULE PO SCH (11:38)
[2018-06-05] MEDS: DOCUSATE SODIUM 100 MG CAPSULE PO SCH ×2 (11:38→17:47)
[2018-06-05] MEDS ORDERED: IBUPROFEN 800 MG TABLET PO SCH ×2 (12:00)
[2018-06-05] MEDS: KETOROLAC TROMETHAMINE INJ/PF 30 MG/1 ML SDV IV SCH ×2 (13:28→22:22)
[2018-06-05] MEDS: RINGERS SOLUTION,LACTATED 1,000 ML IV PRN (17:49)
[2018-06-06] MEDS: RINGERS SOLUTION,LACTATED 1,000 ML IV PRN (01:16)
[2018-06-06] MEDS: HYDROMORPHONE HCL INJ/PF 2 MG/ML AMPULE IV PRN (01:17)
[2018-06-06] MEDS: OXYCODONE-ACETAMINOPHEN 5-325 MG TABLET PO PRN ×3 (03:16→21:42)
[2018-06-06] MEDS: KETOROLAC TROMETHAMINE INJ/PF 30 MG/1 ML SDV IV SCH (06:30)
[2018-06-06 09:25] LABS: HEMATOCRIT 25.8 % (36.0-47.0); HEMOGLOBIN 8.7 g/dL (12.0-15.5); MEAN CORPUSCULAR HEMOGLOBIN 28.5 pg (27.0-33.4); MEAN CORPUSCULAR HGB CONC 33.6 g/dL (32.0-36.0); MEAN CORPUSCULAR VOLUME 85 fl (80-97); PLATELET COUNT 169 10^3/uL (150-450); RED BLOOD COUNT 3.04 10^6/uL (3.72-5.28); RED CELL DISTRIBUTION WIDTH 14.3 % (11.5-14.0)
[2018-06-06] MEDS: DOCUSATE SODIUM 100 MG CAPSULE PO SCH ×2 (09:48→17:19)
[2018-06-06] MEDS: PRENATAL VITAMIN W DHA CAPSULE PO SCH (09:48)
--- NOTE | 2018-06-06 10:14 | PDOC PROGRESS REPORT ---
Subjective-OB Progress Note for:: 06/06/18 Subjective: Asleep on rounds, finally awaken, tired, no pain, passing gas, eating well, ambulating Physical Exam (OB) Vital Signs: Temp Pulse Resp BP Pulse Ox 97.8 F 75 17 88/58 L 95 06/06/18 00:07 06/06/18 00:07 06/06/18 00:07 06/06/18 00:07 06/06/18 00:07 Intake & Output 06/05/18 06/06/18 06/07/18 06:59 06:59 06:59 Intake Total 3571 Output Total 1250 Balance 2321 Weight 64.864 kg - PIH/Pre-Eclampsia Clonus: Negative Headache: Absent Epigastric Pain: No Visual Changes: No - Dressing Removed: No - Medipore dressing CD&I - Lochia Lochia Amount: Scant < 10 ml Lochia Color: Rubra/Red - Abdomen Description: Tender, Soft, Round Hernia Present: No Fundal Description: Firm, Midline Fundal Height: u/u - u/2 Assessment and Plan(PN) - Assessment and Plan (1) S/P repeat low transverse Is this a current diagnosis for this admission?: Yes (2) uterine contractions, antepartum Is this a current diagnosis for this admission?: Yes - Time Spent with Patient Time with patient: Less than 15 minutes Medications reviewed and adjusted accordingly: Yes - Disposition Anticipated Discharge: Home Within: within 24 hours
[2018-06-06] MEDS: IBUPROFEN 800 MG TABLET PO SCH ×2 (12:13→17:19)
[2018-06-07] MEDS: IBUPROFEN 800 MG TABLET PO SCH ×3 (00:22→12:28)
[2018-06-07] MEDS: OXYCODONE-ACETAMINOPHEN 5-325 MG TABLET PO PRN ×2 (02:24→12:29)
[2018-06-07] MEDS: DOCUSATE SODIUM 100 MG CAPSULE PO SCH (11:13)
[2018-06-07] MEDS: PRENATAL VITAMIN W DHA CAPSULE PO SCH (11:13)
--- NOTE | 2018-06-07 12:51 | PDOC DISCHARGE SUMMARY ---
Final Diagnosis Discharge Date: 06/07/18 - Final Diagnosis (1) History of bilateral tubal ligation Is this a current diagnosis for this admission?: Yes (2) S/P repeat low transverse Is this a current diagnosis for this admission?: Yes Discharge Data - Discharge Medication Prescriptions: Oxycodone HCl/Acetaminophen [Percocet 5-325 mg Tablet] 1 tab PO Q4HP PRN #30 tablet PRN Reason: For Pain Scale 3-5 Ibuprofen [Motrin 800 mg Tablet] 800 mg PO Q8HP PRN #60 tablet PRN Reason: Abdominal Cramping Docusate Sodium [Colace 100 mg Capsule] 100 mg PO BID #60 capsule Ferrous Sulfate [Feosol 325 mg Tablet] 325 mg PO BID #60 tablet Vit/Dha [ Multi + Dha Capsule] 1 cap PO DAILY #90 capsule Home Medications: Docusate Sodium [Colace 100 mg Capsule] 100 mg PO BID #60 capsule 06/07/18 Ferrous Sulfate [Feosol 325 mg Tablet] 325 mg PO BID #60 tablet 06/07/18 Ibuprofen [Motrin 800 mg Tablet] 800 mg PO Q8HP PRN #60 tablet 06/07/18 Oxycodone HCl/Acetaminophen [Percocet 5-325 mg Tablet] 1 tab PO Q4HP PRN #30 tablet 06/07/18 Vit/Dha [ Multi + Dha Capsule] 1 cap PO DAILY #90 capsule 06/07 Reason(s) for Admission: Ceasarean Section-Repeat, Tubal Ligation Procedures: Ultrasound Intrapartum Procedure(s): : Low Cervical, Transverse, Tubal Ligation - Diagnosis Test Laboratory: Temp Pulse Resp BP Pulse Ox 98.0 F 80 18 105/65 96 06/07/18 12:08 06/07/18 12:08 06/07/18 12:08 06/07/18 12:08 06/07/18 12:08 06/05/18 06/05/18 06/06/18 05:25 06:42 08:05 RBC 3.72 3.04 L Hgb 10.6 L 8.7 L Hct 31.6 L 25.8 L Urine Opiates Screen NEGATIVE - Discharge information/Instructions Discharge Activity: Activity As Tolerated, Balance Activity w/Rest, No Lifting Over 10 Pounds, No Lifting/Push/Pulling, Pelvic Rest, Slowly Increase Activity, No tub bath, Walk Frequently Discharge Diet: Regular Disposition: HOME, SELF-CARE Follow up with: [facility] in: 1, Weeks
[2018-06-07 13:02] VITALS: BP 109/59
== END 2018-06-07 15:33 | disposition home or self-care (01) | DRG 766 ==
LOC: 2S 05:07
PROVIDERS: ADMIT Obstetrics & Gynecology; ATTEND Obstetrics & Gynecology
PROC: 0UL70CZ Occlusion of Bilateral Fallopian Tubes with Extraluminal Device, Open Approach (ICD-10-PCS; 2018-06-05)
PROC: 4A1HXCZ Monitoring of Products of Conception, Cardiac Rate, External Approach (ICD-10-PCS; 2018-06-05)
PROC: 10D00Z1 Extraction of Products of Conception, Low, Open Approach (ICD-10-PCS; principal; 2018-06-05 07:45)
DX: O34.219 Maternal care for unspecified type scar from previous cesarean delivery (principal); O34.211 Maternal care for low transverse scar from previous cesarean delivery; O69.81X0 Labor and delivery complicated by cord around neck, without compression, not applicable or unspecified; O26.893 Other specified pregnancy related conditions, third trimester; Z67.91 Unspecified blood type, Rh negative; Z3A.39 39 weeks gestation of pregnancy; Z30.2 Encounter for sterilization; Z37.0 Single live birth
CPT/HCPCS: 1961; 36415; 59025; 80307; 81001; 85025; 85027; 86850; 86900; 86901; 94799; J0131; J0456; J1170; J1885; J2250; J2405; J2590; J3010; J3490; J7120

== ENCOUNTER 2018-12-19 12:17 | Emergency (ER) | payer OTHER ==
--- NOTE | 2018-12-19 16:12 | ER Document Report ---
ED Medical Screen (RME) - General Mode of Arrival: Ambulatory Information source: Patient TRAVEL OUTSIDE OF THE [place] IN LAST 30 DAYS: No <LAURY VILCHIS - Last Filed: 12/19/18 16:09> <ISIS NAPOLES - Last Filed: 12/19/18 18:54> - General Chief Complaint: Abdominal Pain Stated Complaint: ABDOMINAL PAIN Time Seen by Provider: 12/19/18 16:08 Primary Care Provider: DENNY COREAS MD [Primary Care Provider] - Follow up as needed Notes: 23-year-old female presents to ED for complaint of upper abdominal pain with nausea or vomiting #3 since 10:00 this morning. Abdomen soft nontender no spl inting or complaint of pain during exam but when I asked her where her abdomen hurts she told me was the upper abdomen. Patient denies any diarrhea or fever. Patient states her last menstrual period was at the beginning of this month. Patient is in no acute distress. Will obtain labs as well as urine and have followed up with another provider. I have greeted and performed a rapid initial assessment of this patient. A comprehensive ED assessment and evaluation of the patient, analysis of test results and completion of medical decision making process will be conducted by an additional ED providers. (LAURY VILCHIS) - HPI Notes: 12/19/18 18:50 Patient is a otherwise healthy 23-year-old female presents to the emergency department with report of severe crampy abdominal pain mainly through the upper abdomen followed by 4 episodes of nausea and vomiting without hematemesis. She denies any constipation or diarrhea or dysuria. Patient reports no cough or congestion or constipation or chest pain or difficulty breathing. No significant back pain. Patient reports after vomiting several hours of observation, now she no longer feels nauseated and denies any abdominal pain. The patient denies feeling weak. There is no history of hypoglycemia or diabetes. Family history no history of diabetes. Prior cholecystectomy and appendectomy. 12/19/18 18:52 12/19/18 18:53 (ISIS NAPOLES) - Related Data Allergies/Adverse Reactions: Penicillins Allergy (Verified 04/10/18 22:55) Past Medical History Renal/ Medical History: Reports: Hx Kidney Stones - thinks she passed one once. Denies: Hx Peritoneal Dialysis GI Medical History: Reports: Hx Gastroesophageal Reflux Disease - . Denies: Hx Hiatal Hernia, Hx Ulcer Psychiatric Medical History: Reports: Hx Bipolar Disorder Denies: Hx Depression, Hx Post Traumatic Stress Disorder, Hx Schizophrenia - Immunizations History of Influenza Vaccine for 07/2017 - 11/2017 Season: No <LAURY VILCHIS - Last Filed: 12/19/18 16:09> - General Information source: Patient - Social History Frequency of alcohol use: None Drug Abuse: None Lives with: Family Family history: denies: DM <ISIS NAPOLES - Last Filed: 12/19/18 18:54> Review of Systems - Review of Systems -: Yes All other systems reviewed and negative <ISIS NAPOLES - Last Filed: 12/19/18 18:54> Physical Exam <ISIS NAPOLES - Last Filed: 12/19/18 18:54> - Vital signs Vitals: Temp Pulse Resp BP Pulse Ox 98.1 F 84 22 H 108/86 H 99 12/19/18 12:28 12/19/18 12:28 12/19/18 12:28 12/19/18 12:28 12/19/18 12:28 - Notes Notes: PHYSICAL EXAMINATION: GENERAL: Well-appearing, well-nourished and in no acute distress. HEAD: Atraumatic, normocephalic. EYES: Pupils equal round and reactive to light, extraocular movements intact, conjunctiva are normal. ENT: Nares patent, oropharynx clear without exudates. Moist mucous membranes. NECK: Normal range of motion, supple without lymphadenopathy LUNGS: Breath sounds clear to auscultation bilaterally and equal. No wheezes rales or rhonchi. HEART: Regular rate and rhythm without murmurs ABDOMEN: No guarding, no rebound. No masses appreciated. Patient reported previous pain through the midepigastric region, but she denies any current pain. Patient has surgical scars from previous cholecystectomy and appendectomy that are well-healed. Female : deferred Musculoskeletal: Normal range of motion, no pitting or edema. No cyanosis. NEUROLOGICAL: Cranial nerves grossly intact. Normal speech, normal gait. Normal sensory, motor exams PSYCH: Normal mood, normal affect. SKIN: Warm, Dry, normal turgor, no rashes or lesions noted. (ISIS NAPOLES) Course - Laboratory Result Diagrams: 12/19/18 16:25 12/19/18 16:25 <ISIS NAPOLES - Last Filed: 12/19/18 18:54> - Re-evaluation Re-evalutation: 12/19/18 18:54 Patient had normal lab work with the exception of a blood sugar of 57. The patient was given fluids to drink which he tolerated and a repeat blood sugar was in the 90s. Patient was counseled to watch her blood sugars closely and to eat something with sugar in it if she felt weak or lightheaded. Repeat abdominal exam she was nontender. Symptoms fit most likely with a viral gastrointestinal illness, with apparent resolution. No evidence for hepatitis or pancreatitis or UTI or . (ISIS NAPOLES) - Vital Signs Vital signs: Temp Pulse Resp BP Pulse Ox 98.1 F 84 22 H 108/86 H 99 12/19/18 12:28 12/19/18 12:28 12/19/18 12:28 12/19/18 12:28 12/19/18 12:28 - Laboratory Laboratory results interpreted by me: 12/19/18 12/19/18 16:25 16:25 RDW 15.8 H Glucose 57 L Doctor's Discharge <LAURY VILCHIS - Last Filed: 12/19/18 16:09> <ISIS NAPOLES - Last Filed: 12/19/18 18:54> - Discharge Clinical Impression: Hypoglycemia Abdominal pain Qualifiers: Abdominal location: epigastric Qualified Code(s): R10.13 - Epigastric pain Vomiting Qualifiers: Vomiting type: unspecified Vomiting Intractability: non-intractable Nausea presence: with nausea Qualified Code(s): R11.2 - Nausea with vomiting, unspecified Condition: Stable Disposition: HOME, SELF-CARE Instructions: Abdominal Pain ([facility]), Antinausea Medication ([facility]), Hypoglycemia ([facility]), Vomiting ([facility]) Additional Instructions: If you feel lightheaded or weak, your blood sugar may be low, and you need to drink or eat something with sugar and it quickly. Prescriptions: Ondansetron [Zofran Odt 4 mg Tablet] 1 tab PO Q8HP PRN #10 tab.rapdis PRN Reason: For Nausea/Vomiting Referrals: DENNY COREAS MD [Primary Care Provider] - Follow up as needed
[2018-12-19 16:53] LABS: ABSOLUTE BASOPHILS # (AUTO) 0.1 10^3/uL (0.0-0.2); ABSOLUTE EOSINOPHILS # (AUTO) 0.5 10^3/uL (0.0-0.6); ABSOLUTE LYMPHOCYTES (AUTO) 2.8 10^3/uL (0.5-4.7); ABSOLUTE MONOCYTES (AUTO) 0.8 10^3/uL (0.1-1.4); ABSOLUTE NEUT (AUTO) 6.2 10^3/uL (1.7-8.2); BASOPHILS % (AUTO) 1.2 % (0-2); EOSINOPHILS % (AUTO) 5.1 % (0-6); HEMATOCRIT 40.3 % (36.0-47.0); HEMOGLOBIN 13.7 g/dL (12.0-15.5); LYMPHOCYTES % (AUTO) 26.8 % (13-45); MEAN CORPUSCULAR HEMOGLOBIN 28.4 pg (27.0-33.4); MEAN CORPUSCULAR HGB CONC 33.9 g/dL (32.0-36.0); MEAN CORPUSCULAR VOLUME 84 fl (80-97); MONOCYTES % (AUTO) 7.7 % (3-13); PLATELET COUNT 280 10^3/uL (150-450); RED CELL DISTRIBUTION WIDTH 15.8 % (11.5-14.0); SEGMENTED NEUTROPHILS % (AUTO) 59.2 % (42-78); TOTAL CELLS COUNTED % (AUTO) 100 %; WHITE BLOOD COUNT 10.4 10^3/uL (4.0-10.5)
[2018-12-19 17:16] LABS: ALANINE AMINOTRANSFERASE 23 U/L (9-52); ALBUMIN 4.6 g/dL (3.5-5.0); ALKALINE PHOSPHATASE 69 U/L (38-126); ANION GAP 13 (5-19); ASPARTATE AMINO TRANSFERASE 18 U/L (14-36); BILIRUBIN,DIRECT 0.2 mg/dL (0.0-0.4); BILIRUBIN,TOTAL 0.4 mg/dL (0.2-1.3); BLOOD UREA NITROGEN 11 mg/dL (7-20); CALCIUM 10.2 mg/dL (8.4-10.2); CARBON DIOXIDE 29 mmol/L (22-30); CHLORIDE 98 mmol/L (98-107); POTASSIUM 3.7 mmol/L (3.6-5.0); SODIUM 139.9 mmol/L (137-145); TOTAL PROTEIN 7.4 g/dL (6.3-8.2)
[2018-12-19 17:19] LABS: GLUCOSE 57 mg/dL (75-110)
[2018-12-19 18:16] LABS: APPEARANCE,URINE SLIGHTLY-CLOUDY; BILIRUBIN,URINE NEGATIVE (NEGATIVE); COLOR,URINE YELLOW; GLUCOSE, URINE NEGATIVE (NEGATIVE); KETONES,URINE NEGATIVE (NEGATIVE); LEUKOCYTE ESTERASE,URINE NEGATIVE (NEGATIVE); NITRITE,URINE NEGATIVE (NEGATIVE); PROTEIN,URINE NEGATIVE (NEGATIVE); URINE SPECIFIC GRAVITY 1.011; UROBILINOGEN,URINE NEGATIVE mg/dL (<2.0)
[2018-12-19 18:51] VITALS: BP 118/80
== END 2018-12-19 18:55 | disposition home or self-care (01) ==
LOC: ER 12:17
DX: R11.2 Nausea with vomiting, unspecified (principal); R73.9 Hyperglycemia, unspecified; R10.13 Epigastric pain
CPT/HCPCS: 36415; 80053; 81001; 82962; 84703; 85025; 99284

== ENCOUNTER 2018-12-27 20:59 | Emergency (ER) | payer OTHER ==
[2018-12-27 21:27] VITALS: BP 107/64
== END 2018-12-27 23:50 | disposition left against medical advice (07) ==
LOC: ER 20:59
DX: Z53.21 Procedure and treatment not carried out due to patient leaving prior to being seen by health care provider (principal)

== ENCOUNTER 2019-02-01 01:51 | Emergency (ER) | payer OTHER ==
[2019-02-01 04:01] LABS: ABSOLUTE BASOPHILS # (AUTO) 0.1 10^3/uL (0.0-0.2); ABSOLUTE EOSINOPHILS # (AUTO) 0.7 10^3/uL (0.0-0.6); ABSOLUTE LYMPHOCYTES (AUTO) 2.4 10^3/uL (0.5-4.7); ABSOLUTE MONOCYTES (AUTO) 0.8 10^3/uL (0.1-1.4); ABSOLUTE NEUT (AUTO) 7.4 10^3/uL (1.7-8.2); BASOPHILS % (AUTO) 0.8 % (0-2); EOSINOPHILS % (AUTO) 6.6 % (0-6); HEMOGLOBIN 12.2 g/dL (12.0-15.5); MEAN CORPUSCULAR HEMOGLOBIN 27.3 pg (27.0-33.4); MEAN CORPUSCULAR HGB CONC 32.9 g/dL (32.0-36.0); MEAN CORPUSCULAR VOLUME 83 fl (80-97); MONOCYTES % (AUTO) 7.2 % (3-13); PLATELET COUNT 234 10^3/uL (150-450); RED BLOOD COUNT 4.46 10^6/uL (3.72-5.28); RED CELL DISTRIBUTION WIDTH 15.9 % (11.5-14.0); SEGMENTED NEUTROPHILS % (AUTO) 64.4 % (42-78); TOTAL CELLS COUNTED % (AUTO) 100 %; WHITE BLOOD COUNT 11.4 10^3/uL (4.0-10.5)
[2019-02-01 04:02] LABS: APPEARANCE,URINE CLEAR; BILIRUBIN,URINE NEGATIVE (NEGATIVE); COLOR,URINE YELLOW; GLUCOSE, URINE NEGATIVE (NEGATIVE); KETONES,URINE NEGATIVE (NEGATIVE); LEUKOCYTE ESTERASE,URINE NEGATIVE (NEGATIVE); NITRITE,URINE NEGATIVE (NEGATIVE); PROTEIN,URINE NEGATIVE (NEGATIVE); UROBILINOGEN,URINE NEGATIVE mg/dL (<2.0)
[2019-02-01 04:13] LABS: ALANINE AMINOTRANSFERASE 20 U/L (9-52); ALBUMIN 3.5 g/dL (3.5-5.0); ALKALINE PHOSPHATASE 58 U/L (38-126); ANION GAP 8 (5-19); ASPARTATE AMINO TRANSFERASE 19 U/L (14-36); BILIRUBIN,DIRECT 0.2 mg/dL (0.0-0.4); BILIRUBIN,TOTAL 0.3 mg/dL (0.2-1.3); BLOOD UREA NITROGEN 11 mg/dL (7-20); CALCIUM 8.8 mg/dL (8.4-10.2); CARBON DIOXIDE 26 mmol/L (22-30); CHLORIDE 107 mmol/L (98-107); GLUCOSE 91 mg/dL (75-110); POTASSIUM 3.8 mmol/L (3.6-5.0); SALICYLATE 1.1 mg/dL (2.0-20.0); SODIUM 141.1 mmol/L (137-145)
[2019-02-01 04:14] LABS: ACETAMINOPHEN < 10 ug/mL (10-30); ALCOHOL < 10 mg/dL (NONE DETECTED)
[2019-02-01] MEDS ORDERED: METOCLOPRAMIDE HCL 10 MG TABLET PO ONE (04:17)
[2019-02-01] MEDS ORDERED: DIPHENHYDRAMINE HCL 25 MG CAPSULE PO ONE (04:17)
[2019-02-01] MEDS ORDERED: KETOROLAC TROMETHAMINE 60 MG/2 ML SDV IM ONE (04:17)
[2019-02-01 04:22] LABS: URINE AMPHETAMINES SCREEN NEGATIVE; URINE BARBITURATES SCREEN NEGATIVE; URINE BENZODIAZEPINES SCREEN NEGATIVE; URINE COCAINE SCREEN NEGATIVE; URINE MARIJUANA (THC) SCREEN UNCONFIRMED POSITIVE; URINE METHADONE SCREEN NEGATIVE; URINE PHENCYCLIDINE SCREEN NEGATIVE
--- NOTE | 2019-02-01 04:58 | ER Document Report ---
ED General - General Chief Complaint: Headache Stated Complaint: HEADACHE Time Seen by Provider: 02/01/19 03:42 TRAVEL OUTSIDE OF THE [place] IN LAST 30 DAYS: No - HPI Notes: Patient is a 23-year-old female with a history of headaches as well as bipolar disorder who comes to the emergency department for evaluation. She states 4 days ago she developed a headache. Is on her left side, behind her eye. It is typical of her normal headaches except it seems to be lasting a little bit longer. She states is worsened with bright light. She does have some mild associated nausea. No vomiting. No fevers or sore throat. Seeing, speaking, swallowing without difficulty. Patient also states that she is having side effects from her new medication. She was just recently placed on Lamictal by [facility]. She states she is feeling shaky and anxious. States she is having mood swings that are increased. Dates she believes she needs a "brain scan" because of her headache. - Related Data Allergies/Adverse Reactions: Penicillins Allergy (Verified 04/10/18 22:55) Past Medical History - General Information source: Patient - Social History Smoking Status: Current Every Day Smoker Frequency of alcohol use: Occasional Family History: Reviewed & Not Pertinent Patient has suicidal ideation: No Patient has homicidal ideation: No Renal/ Medical History: Reports: Hx Kidney Stones - thinks she passed one once. Denies: Hx Peritoneal Dialysis GI Medical History: Reports: Hx Gastroesophageal Reflux Disease - . Denies: Hx Hiatal Hernia, Hx Ulcer Psychiatric Medical History: Reports: Hx Bipolar Disorder Denies: Hx Depression, Hx Post Traumatic Stress Disorder, Hx Schizophrenia Review of Systems - Review of Systems Constitutional: No symptoms reported EENT: No symptoms reported Cardiovascular: No symptoms reported Respiratory: See HPI Gastrointestinal: No symptoms reported Genitourinary: No symptoms reported Musculoskeletal: No symptoms reported Skin: No symptoms reported Neurological/Psychological: See HPI Physical Exam - Vital signs Vitals: Temp Pulse Resp BP Pulse Ox 98.3 F 97 18 119/71 100 02/01/19 02:00 02/01/19 02:00 02/01/19 02:00 02/01/19 02:00 02/01/19 02:00 - Notes Notes: Vital signs reviewed, please refer to chart. Head is normocephalic, atraumatic. Pupils equal round, reactive to light. Neck is supple without meningismus. Heart is regular rate and rhythm. Lungs are clear to auscultation bilaterally. Abdomen is soft, nontender, normoactive bowel sounds throughout. Extremities without cyanosis, clubbing. Posterior calves are nontender. Peripheral pulses are equal. Skin is warm and dry. Patient is awake, alert, oriented x3. Cranial nerves II that are grossly intact without focal neurological deficits. Strength is +5-5 bilateral lower extremities. Sensation is intact. Intact ckddnc-bopx-vqspiy, rapid arm units, dtbf-yo-sapv. Course - Re-evaluation Re-evalutation: 02/01/19 04:56 Patient presents to the emergency department for evaluation. This headache is typical for her. She is medicated with Toradol, Reglan, Benadryl. She has no neurological deficits. My strong suspicion is that the headache that she has is worsened and staying because of the Lamictal. All of her symptoms are common listed side effects of Lamictal. I explained to the patient that many times these symptoms will damir within a week or 2 of taking the medication, and if she found intolerable she should continue it. She states she does not and plans to quit taking the Lamictal. I strongly encouraged her to follow-up with [facility] and see regarding this. I do not see any indication for imaging at this time. She is medicated here and will be discharged home. She is to return to the ED with worsening or concerning symptoms. - Vital Signs Vital signs: Temp Pulse Resp BP Pulse Ox 98.3 F 97 18 119/71 100 02/01/19 02:00 02/01/19 02:00 02/01/19 02:00 02/01/19 02:00 02/01/19 02:00 - Laboratory Result Diagrams: 02/01/19 03:45 02/01/19 03:45 Laboratory results interpreted by me: 02/01/19 02/01/19 03:45 03:45 WBC 11.4 H RDW 15.9 H Eosinophils % 6.6 H Absolute Eosinophils 0.7 H Creatinine 0.49 L Total Protein 6.0 L Salicylates 1.1 L Acetaminophen < 10 L Discharge - Discharge Clinical Impression: Migraine headache, Heart palpitations, Side effect of medication Condition: Stable Disposition: HOME, SELF-CARE Instructions: Toradol Injection ([facility]), Reglan ([facility]), Use of Diphenhydramine Additional Instructions: It is likely that your symptoms are all a result of the Lamictal. You can continue to try to take this to see if these symptoms lessen, or discontinue it. Please advise your primary care provider of your decision. Rest and stay well- hydrated. Return to the emergency department with worsening or new concerning symptoms.
[2019-02-01 05:40] VITALS: BP 95/56
== END 2019-02-01 05:35 | disposition home or self-care (01) ==
LOC: ER 01:51
DX: G43.909 Migraine, unspecified, not intractable, without status migrainosus (principal); R00.2 Palpitations; T50.905A Adverse effect of unspecified drugs, medicaments and biological substances, initial encounter; R11.0 Nausea; F31.9 Bipolar disorder, unspecified; F17.200 Nicotine dependence, unspecified, uncomplicated; Z88.0 Allergy status to penicillin
CPT/HCPCS: 99284; 96372; 36415; 80307 ×4; 85025; 80053; 81001; J1885

== ENCOUNTER 2019-02-02 12:20 | Emergency (ER) | payer OTHER ==
[2019-02-02] MEDS ORDERED: ONDANSETRON 4 MG TAB.RAPDIS PO ONE (13:13)
[2019-02-02] MEDS ORDERED: KETOROLAC TROMETHAMINE 60 MG/2 ML SDV IM ONE (13:13)
--- NOTE | 2019-02-02 13:17 | ER Document Report ---
ED Medical Screen (RME) - General Chief Complaint: Headache Stated Complaint: HEADACHE Time Seen by Provider: 02/02/19 13:12 Mode of Arrival: Ambulatory Information source: Patient Notes: 23-year-old female presented to ED for complaint of headache for the last 6 days. She states she came into the emergency room 2 days ago because she had a seizure. She states she was awake throughout the whole seizure her body was spasming she was unable to talk with her . She states she started with a headache 6 days ago and they gave her a shot of something in her bottom that helped with the headache but it did not stay gone and came back. She states she has tried some Tylenol some Excedrin and some ibuprofen. She states she has not tried anything today. She states she came to the emergency room today by [facility]. Patient states that she passed out and hit her head a couple days before the headache started. She states when she was seen here couple days ago she did not tell them she had a seizure because she did not think it was seizure and she did not tell them that she had passed out and hit her head but she did not get a CAT scan even though she asked for one.. Last menstrual period was last week. Patient states she really wants to CAT scans I did discuss risk and benefits of the CAT scan and. States she still wants the CAT scan because something is going on in her head. I have greeted and performed a rapid initial assessment of this patient. A comprehensive ED assessment and evaluation of the patient, analysis of test results and completion of medical decision making process will be conducted by an additional ED providers. TRAVEL OUTSIDE OF THE [place] IN LAST 30 DAYS: No - Related Data Allergies/Adverse Reactions: Penicillins Allergy (Verified 02/02/19 12:28) Past Medical History Renal/ Medical History: Reports: Hx Kidney Stones - thinks she passed one once. Denies: Hx Peritoneal Dialysis GI Medical History: Reports: Hx Gastroesophageal Reflux Disease - . Denies: Hx Hiatal Hernia, Hx Ulcer Psychiatric Medical History: Reports: Hx Bipolar Disorder Denies: Hx Depression, Hx Post Traumatic Stress Disorder, Hx Schizophrenia - Immunizations History of Influenza Vaccine for 07/2017 - 11/2017 Season: No Physical Exam - Vital signs Vitals: Temp Pulse Resp BP Pulse Ox 98.4 F 87 16 104/64 98 02/02/19 12:40 02/02/19 12:40 02/02/19 12:40 02/02/19 12:40 02/02/19 12:40 Course - Vital Signs Vital signs: Temp Pulse Resp BP Pulse Ox 98.4 F 87 16 104/64 98 02/02/19 12:40 02/02/19 12:40 02/02/19 12:40 02/02/19 12:40 02/02/19 12:40
[2019-02-02 14:06] LABS: ABSOLUTE BASOPHILS # (AUTO) 0.1 10^3/uL (0.0-0.2); ABSOLUTE EOSINOPHILS # (AUTO) 0.7 10^3/uL (0.0-0.6); ABSOLUTE LYMPHOCYTES (AUTO) 1.9 10^3/uL (0.5-4.7); ABSOLUTE MONOCYTES (AUTO) 0.5 10^3/uL (0.1-1.4); ABSOLUTE NEUT (AUTO) 3.7 10^3/uL (1.7-8.2); EOSINOPHILS % (AUTO) 10.4 % (0-6); HEMATOCRIT 38.2 % (36.0-47.0); HEMOGLOBIN 12.5 g/dL (12.0-15.5); LYMPHOCYTES % (AUTO) 27.6 % (13-45); MEAN CORPUSCULAR HEMOGLOBIN 27.3 pg (27.0-33.4); MEAN CORPUSCULAR HGB CONC 32.6 g/dL (32.0-36.0); MEAN CORPUSCULAR VOLUME 84 fl (80-97); MONOCYTES % (AUTO) 7.4 % (3-13); PLATELET COUNT 232 10^3/uL (150-450); RED BLOOD COUNT 4.56 10^6/uL (3.72-5.28); RED CELL DISTRIBUTION WIDTH 16.2 % (11.5-14.0); SEGMENTED NEUTROPHILS % (AUTO) 53.6 % (42-78); TOTAL CELLS COUNTED % (AUTO) 100 %; WHITE BLOOD COUNT 6.8 10^3/uL (4.0-10.5)
[2019-02-02 14:22] LABS: URINE AMPHETAMINES SCREEN NEGATIVE; URINE BARBITURATES SCREEN NEGATIVE; URINE BENZODIAZEPINES SCREEN NEGATIVE; URINE COCAINE SCREEN NEGATIVE; URINE MARIJUANA (THC) SCREEN UNCONFIRMED POSITIVE; URINE METHADONE SCREEN NEGATIVE; URINE PHENCYCLIDINE SCREEN NEGATIVE
[2019-02-02 14:23] LABS: AMORPHOUS SEDIMENT,URINE 1+ /HPF; APPEARANCE,URINE TURBID; BILIRUBIN,URINE NEGATIVE (NEGATIVE); COLOR,URINE YELLOW; GLUCOSE, URINE NEGATIVE (NEGATIVE); KETONES,URINE NEGATIVE (NEGATIVE); LEUKOCYTE ESTERASE,URINE NEGATIVE (NEGATIVE); NITRITE,URINE NEGATIVE (NEGATIVE); PROTEIN,URINE NEGATIVE (NEGATIVE); URINE SPECIFIC GRAVITY 1.019; UROBILINOGEN,URINE NEGATIVE mg/dL (<2.0)
[2019-02-02 14:34] LABS: ALANINE AMINOTRANSFERASE 27 U/L (9-52); ALBUMIN 3.7 g/dL (3.5-5.0); ALKALINE PHOSPHATASE 60 U/L (38-126); ANION GAP 8 (5-19); ASPARTATE AMINO TRANSFERASE 21 U/L (14-36); BILIRUBIN,DIRECT 0.3 mg/dL (0.0-0.4); BILIRUBIN,TOTAL 0.3 mg/dL (0.2-1.3); BLOOD UREA NITROGEN 14 mg/dL (7-20); CARBON DIOXIDE 28 mmol/L (22-30); CHLORIDE 106 mmol/L (98-107); GLUCOSE 81 mg/dL (75-110); POTASSIUM 4.3 mmol/L (3.6-5.0); SODIUM 141.7 mmol/L (137-145); TOTAL PROTEIN 6.3 g/dL (6.3-8.2)
--- NOTE | 2019-02-02 15:06 | RADIOLOGY REPORT (SQ) ---
EXAM DESCRIPTION: CT HEAD WITHOUT COMPLETED DATE/TIME: 02/02/2019 2:53 pm REASON FOR STUDY: Headache x6 days seizure 2 days ago head injury 6 COMPARISON: None. TECHNIQUE: Axial images acquired through the brain without intravenous contrast. Images reviewed wi th bone, brain and subdural windows. Images stored on PACS. All CT scanners at this facility use dose modulation, iterative reconstruction, and/or weight based d osing when appropriate to reduce radiation dose to as low as reasonably achievable (ALARA). [facility]: Dose Right [facility]: CareDose [facility]: Dose Right [facility]: Teradose 4D [facility]: [employer] RADIATION DOSE: CT Rad equipment meets quality standard of care and radiation dose reduction techniq ues were employed. CTDIvol: 53.2 mGy. DLP: 1017 mGy-cm. mGy. LIMITATIONS: None. FINDINGS: VENTRICLES: Normal size and contour. CEREBRUM: No masses. No hemorrhage. No midline shift. No evidence for acute infarction. Normal gra y/white matter differentiation. No areas of low density in the white matter. CEREBELLUM: No masses. No hemorrhage. No alteration of density. No evidence for acute infarction. EXTRAAXIAL SPACES: No fluid collections. No masses. ORBITS AND GLOBE: No intra- or extraconal masses. Normal contour of globe without masses. CALVARIUM: No fracture. PARANASAL SINUSES: No fluid or mucosal thickening. SOFT TISSUES: No mass or hematoma. OTHER: No other significant finding. IMPRESSION: No acute intracranial findings. EVIDENCE OF ACUTE STROKE: NO. COMMENT: Quality ID # [id number]: Final reports with documentation of one or more dose reduction techniques (e.g., Automated exposure control, adjustment of the mA and/or kV according to patient size, use of iterative reconstruction technique) TECHNICAL DOCUMENTATION: JOB ID: [id number] [place]-[id number] 2010 [employer]- All Rights Reserved Reading location - IP/workstation name: [email or web address]
[2019-02-02] MEDS ORDERED: DIPHENHYDRAMINE HCL 25 MG CAPSULE PO ONE (16:18)
[2019-02-02] MEDS ORDERED: DEXAMETHASONE 4 MG TABLET PO ONE (16:18)
--- NOTE | 2019-02-02 16:21 | ER Document Report ---
ED General - General Chief Complaint: Headache Stated Complaint: HEADACHE Time Seen by Provider: 02/02/19 13:12 Mode of Arrival: Ambulatory Information source: Patient, [facility] Records Notes: 23-year-old female presents with left-sided headache that started 5 days prior to arrival. Patient states that 5 days ago she developed a left-sided headache and had an episode of "body spasm". She states that she was awake during that time and was unable to respond to her . She is unclear how long this lasted but states that she was brought to the emergency department and evaluated. Patient denies any history of previous seizure. She does currently take Lamictal for bipolar disorder. Upon my exam patient is headache free. TRAVEL OUTSIDE OF THE [place] IN LAST 30 DAYS: No - HPI Onset: Last week Onset/Duration: Intermittent, Gone Quality of pain: Achy, Dull Severity: Mild Pain Level: 2 Associated symptoms: Headache. denies: Body/muscle aches, Nausea, Vomiting, Shortness of breath Exacerbated by: Denies Relieved by: Denies Similar symptoms previously: No Recently seen / treated by doctor: No - Related Data Allergies/Adverse Reactions: Penicillins Allergy (Verified 02/02/19 12:28) Past Medical History - General Information source: Patient - Social History Smoking Status: Current Every Day Smoker Cigarette use (# per day): Yes - 5 Smoking Education Provided: Yes - Smoking cessation counseling was provided for 4 minutes at the bedside Frequency of alcohol use: Social Drug Abuse: Marijuana Lives with: Spouse/Significant other Family History: Reviewed & Not Pertinent Patient has suicidal ideation: No Patient has homicidal ideation: No Neurological Medical History: Reports: Hx Migraine Renal/ Medical History: Reports: Hx Kidney Stones - thinks she passed one once. Denies: Hx Peritoneal Dialysis GI Medical History: Reports: Hx Gastroesophageal Reflux Disease - . Denies: Hx Hiatal Hernia, Hx Ulcer Psychiatric Medical History: Reports: Hx Bipolar Disorder Denies: Hx Depression, Hx Post Traumatic Stress Disorder, Hx Schizophrenia Past Surgical History: Reports: Hx Appendectomy, Hx Cholecystectomy Review of Systems - Review of Systems Notes: REVIEW OF SYSTEMS: CONSTITUTIONAL : Denies fever, chills, or sweats. Denies recent illness. Denies weight loss, recent hospitalizations. EENT: Denies visual changes, eye pain. Denies sore throat, oral lesions, difficulty swallowing. CARDIOVASCULAR: Denies chest pain. Denies palpitations. Denies lower extremity edema. RESPIRATORY: Denies cough. Denies shortness of breath, wheezing. GASTROINTESTINAL: Denies abdominal pain or distention. Denies nausea, vomiting, or diarrhea. Denies blood in vomitus, stools, or per rectum. Denies black, tarry stools. Denies constipation. GENITOURINARY: Denies difficulty urinating, painful urination, frequency, blood in urine, or vaginal discharge. MUSCULOSKELETAL: Denies back or neck pain or stiffness. Denies joint pain or swelling. SKIN: Denies rash, lesions or sores. HEMATOLOGIC : Denies easy bruising or bleeding. LYMPHATIC: Denies swollen glands. NEUROLOGICAL: Denies confusion or altered mental status. Denies loss of consciousness. Denies dizziness or lightheadedness. + headache. Denies weakness or paralysis. Denies problems difficulty with ambulation, slurred speech. Denies sensory loss, numbness, or tingling. Denies seizures. PSYCHIATRIC: Denies anxiety or stress. Denies depression, suicidal ideation, or homicidal ideation. Denies visual or auditory hallucinations. Physical Exam - Vital signs Vitals: Temp Pulse Resp BP Pulse Ox 98.4 F 87 16 104/64 98 02/02/19 12:40 02/02/19 12:40 02/02/19 12:40 02/02/19 12:40 02/02/19 12:40 - Notes Notes: PHYSICAL EXAMINATION: GENERAL: Well-appearing, well-nourished and in no acute distress. HEAD: Atraumatic, normocephalic. EYES: Pupils equal round and reactive to light, extraocular movements intact, conjunctiva are normal. ENT: Nares patent, oropharynx clear without exudates. Moist mucous membranes. NECK: Normal range of motion, supple without lymphadenopathy LUNGS: Breath sounds clear to auscultation bilaterally and equal. No wheezes rales or rhonchi. HEART: Regular rate and rhythm without murmurs ABDOMEN: Soft, nontender, nondistended abdomen. No guarding, no rebound. No masses appreciated. Female : deferred Musculoskeletal: Normal range of motion, no pitting or edema. No cyanosis. NEUROLOGICAL: Mental status; alert and oriented x3. Cranial nerves II through XII intact. Sensation intact to sharp/dull differentiation in all extremities. Motor; normal tone. No abnormal movements appreciated. No pronator drift. Strength tested and 5/5 in bilateral wrist flexion/extension, elbow flexion/extension, shoulder abduction, straight leg raise, knee flexion/extension, ankle dorsiflexion/plantar flexion. Patient ambulates with a steady gait. Coordination; no ataxia. Finger to nose and heel to pan testing intact bilaterally. Reflexes; brachial radialis, biceps, and patellar reflexes within normal limits and symmetric bilaterally. Babinski with downgoing toes bilaterally. PSYCH: Normal mood, normal affect. SKIN: Warm, Dry, normal turgor, no rashes or lesions noted. Course - Re-evaluation Re-evalutation: 02/02/19 16:59 Laboratory 02/02/19 02/02/19 02/02/19 13:40 13:40 13:40 WBC 6.8 RBC 4.56 Hgb 12.5 Hct 38.2 MCV 84 MCH 27.3 MCHC 32.6 RDW 16.2 H Plt Count 232 Seg Neutrophils % 53.6 Lymphocytes % 27.6 Monocytes % 7.4 Eosinophils % 10.4 H Basophils % 1.0 Absolute Neutrophils 3.7 Absolute Lymphocytes 1.9 Absolute Monocytes 0.5 Absolute Eosinophils 0.7 H Absolute Basophils 0.1 Sodium 141.7 Potassium 4.3 Chloride 106 Carbon Dioxide 28 Anion Gap 8 BUN 14 Creatinine 0.53 Est GFR ( Amer) > 60 Est GFR (Non-Af Amer) > 60 Glucose 81 Calcium 9.0 Total Bilirubin 0.3 Direct Bilirubin 0.3 Neonat Total Bilirubin Not Reportable Neonat Direct Bilirubin Not Reportable Neonat Indirect Bili Not Reportable AST 21 ALT 27 Alkaline Phosphatase 60 Total Protein 6.3 Albumin 3.7 Serum HCG, Qual NEGATIVE Urine Color Urine Appearance Urine pH Ur Specific [place] Urine Protein Urine Glucose (UA) Urine Ketones Urine Blood Urine Nitrite Urine Bilirubin Urine Urobilinogen Ur Leukocyte Esterase Urine WBC (Auto) Urine RBC (Auto) Urine Bacteria (Auto) Squamous Epi Cells Auto Amorphous Sediment Auto Urine Mucus (Auto) Urine Ascorbic Acid Urine Opiates Screen Urine Methadone Screen Ur Barbiturates Screen Ur Phencyclidine Scrn Ur Amphetamines Screen U Benzodiazepines Scrn Urine Cocaine Screen U Marijuana (THC) Screen 02/02/19 02/02/19 13:40 13:40 WBC RBC Hgb Hct MCV MCH MCHC RDW Plt Count Seg Neutrophils % Lymphocytes % Monocytes % Eosinophils % Basophils % Absolute Neutrophils Absolute Lymphocytes Absolute Monocytes Absolute Eosinophils Absolute Basophils Sodium Potassium Chloride Carbon Dioxide Anion Gap BUN Creatinine Est GFR ( Amer) Est GFR (Non-Af Amer) Glucose Calcium Total Bilirubin Direct Bilirubin Neonat Total Bilirubin Neonat Direct Bilirubin Neonat Indirect Bili AST ALT Alkaline Phosphatase Total Protein Albumin Serum HCG, Qual Urine Color YELLOW Urine Appearance TURBID Urine pH 7.0 Ur Specific [place] 1.019 Urine Protein NEGATIVE Urine Glucose (UA) NEGATIVE Urine Ketones NEGATIVE Urine Blood NEGATIVE Urine Nitrite NEGATIVE Urine Bilirubin NEGATIVE Urine Urobilinogen NEGATIVE Ur Leukocyte Esterase NEGATIVE Urine WBC (Auto) 3 Urine RBC (Auto) 1 Urine Bacteria (Auto) TRACE Squamous Epi Cells Auto 21 Amorphous Sediment Auto 1+ Urine Mucus (Auto) MANY Urine Ascorbic Acid NEGATIVE Urine Opiates Screen NEGATIVE Urine Methadone Screen NEGATIVE Ur Barbiturates Screen NEGATIVE Ur Phencyclidine Scrn NEGATIVE Ur Amphetamines Screen NEGATIVE U Benzodiazepines Scrn NEGATIVE Urine Cocaine Screen NEGATIVE U Marijuana (THC) Screen UNCONFIRMED POSITIVE Head CT 02/02/19 13:17 IMPRESSION: No acute intracranial findings. EVIDENCE OF ACUTE STROKE: NO. Temp Pulse Resp BP Pulse Ox 97.9 F 81 16 104/60 97 02/02/19 16:58 02/02/19 16:58 02/02/19 12:40 02/02/19 16:58 02/02/19 16:58 23-year-old female presents with left-sided headache that started 1 week prior to arrival and has been intermittent since that time. Denies any associated nausea, photophobia. Did receive Toradol and Zofran prior to my exam and upon my exam is headache free. Patient has a normal neurologic exam. She was given Decadron [address] of the head was obtained by the provider in triage and showed no acute intracranial findings. CBC, CMP, urinalysis are unremarkable. UDS positive for marijuana. Presentation of a headache that appears to be most consistent with tension versus migrainous type headache. Headache was not maximal in onset, patient has no focal neurologic deficits, no nuchal rigidity, vital signs within normal limits, no papilledema, and patient is overall well in appearance. Based on clinical history and examination I do not suspect an acute subarachnoid hemorrhage, dural venous sinus thrombosis, acute meningitis, or intercranial mass. Given my low clinical suspicion for any acute life-threatening etiology. Patient was evaluated and treated as appropriate for the patient's presenting symptoms and complaint, with consideration of any critical or life threatening conditions that may be associated with their obtained history and exam as noted above. All results were discussed with patient. Patient provided the opportunity to ask questions, and express concerns. Patient was educated on treatments based on their presumed diagnosis as noted above. At this time we will discharge the patient with return precautions and follow-up recommendations. Verbal discharge instructions given a the bedside. Medication warnings reviewed. Patient is in agreement with this plan and has verbalized understanding of return precautions. After careful consideration I feel that that patient can be safely discharged from the emergency department, they were advised to followup with a primary care physician in 2-3 days. Dictation on this chart was performed using voice recognition software and may result in unintended grammatical, spelling, syntax or errors. - Vital Signs Vital signs: Temp Pulse Resp BP Pulse Ox 98.4 F 87 16 104/64 98 02/02/19 12:40 02/02/19 12:40 02/02/19 12:40 02/02/19 12:40 02/02/19 12:40 - Laboratory Result Diagrams: 02/02/19 13:40 02/02/19 13:40 Laboratory results interpreted by me: 02/02/19 13:40 RDW 16.2 H Eosinophils % 10.4 H Absolute Eosinophils 0.7 H - Diagnostic Test Radiology reviewed: Image reviewed, Reports reviewed Discharge - Discharge Clinical Impression: Headache Qualifiers: Headache type: unspecified Headache chronicity pattern: unspecified pattern Intractability: not intractable Qualified Code(s): R51 - Headache Condition: Good Disposition: HOME, SELF-CARE Instructions: Headache ([facility]) Additional Instructions: You have been seen in the Emergency Department (ED) for a headache. Please use Reglan, Benadryl, Tylenol (acetaminophen) or Motrin (ibuprofen) as needed for symptoms, but only as written on the box. As we have discussed, please follow up with your primary care doctor as soon as possible regarding today's ED visit and your headache symptoms. Call your doctor or return to the ED if you have a worsening headache, sudden and severe headache, confusion, slurred speech, facial droop, weakness or numbness in any arm or leg, extreme fatigue, or other symptoms that concern you. Prescriptions: Metoclopramide HCl [Reglan 10 mg Tablet] 1 tab PO Q8H PRN #10 tablet PRN Reason: For Headache
[2019-02-02 16:59] VITALS: BP 104/60
== END 2019-02-02 16:59 | disposition home or self-care (01) ==
LOC: ER 12:20
DX: R51 Headache (principal); F31.9 Bipolar disorder, unspecified; Z79.899 Other long term (current) drug therapy; F17.210 Nicotine dependence, cigarettes, uncomplicated
CPT/HCPCS: 99406; 99284; 96372; 36415; 84703; 85025; 80053; 81001; 80307; 70450; J1885; S0119